=== PATIENT | male | born 1995 | race Two or more races ===

== ENCOUNTER 2016-10-01 12:59 | Emergency (ER) | payer MEDICAID ==
[~2016-10-01] VITALS: Ht 180.3 cm; Wt 72.6 kg
[2016-10-01 13:33] VITALS: BP 105/60
[2016-10-01 14:01] LABS: Basophils # (auto) 0 uL; Basophils % (auto) 0.4 % (0.0-2.0); DEFINITIVE VIEW TRANSMISSION; Eosinophils # (auto) 0 uL; Eosinophils % (auto) 0.1 % (0.0-7.0); Hematocrit 44.9 % (41.0-53.0); Hemoglobin 14.2 g/dL (13.5-17.5); Lymphocytes # (auto) 2.2 uL; Lymphocytes % (auto) 27.7 % (10.0-50.0); Mean Corpuscular Hemoglobin 24.5 pg (28.0-32.0); Mean Corpuscular Hgb Conc. 31.6 g/dL (32.0-36.0); Mean Corpuscular Volume 77.6 fL (80.0-100.0); Mean Platelet Volume 9.7 fL (7.4-10.4); Monocytes # (auto) 0.7 uL; Monocytes % (auto) 8.6 % (0.0-12.0); Neutrophils # (auto) 5.1 uL; Neutrophils % (auto) 63.2 % (37.0-80.0); Platelet Count (auto) 214 10^3/uL (140-450); SUSPECT VIEW TRANSMISSION
[2016-10-01 14:39] LABS: Albumin 4.9 g/dL (3.4-5.0); Alkaline Phosphatase 79 U/L (45-117); Anion Gap 17 (5-15); Aspartate Aminotransferase 18 U/L (15-37); BUN/Creatinine Ratio 8.5; Bilirubin, Total 0.7 mg/dL (0.2-1.0); Blood Urea Nitrogen 13 mg/dL (7-18); Carbon Dioxide 17 mmol/L (21-32); Chloride 104 mmol/L (98-107); GFR African American 74 mL/min; GFR Non-African American 61 mL/min; Glucose 131 mg/dL (74-106); Sodium 138 mmol/L (136-145); Total Protein 8.7 g/dL (6.4-8.2)
[2016-10-01 14:46] LABS: Potassium 2.8 mmol/L (3.5-5.1)
[2016-10-01] MEDS ORDERED: POTASSIUM CHL 20 Meq TABLET PO ONE (16:15)
== END 2016-10-01 16:10 | disposition left against medical advice (07) ==
LOC: EDBD 12:59 → ER 13:15
DX: F41.9 Anxiety disorder, unspecified (principal); Z53.21 Procedure and treatment not carried out due to patient leaving prior to being seen by health care provider
CPT/HCPCS: 36415; 71010; 80053; 84484; 85025; 93005

== ENCOUNTER 2016-11-26 11:42 | Emergency (ER) | payer MEDICAID ==
[~2016-11-26] VITALS: Ht 180.3 cm; Wt 72.6 kg
[2016-11-26 11:58] VITALS: BP 117/62
== END 2016-11-26 12:41 | disposition home or self-care (01) ==
LOC: ER 11:42
DX: S16.1XXA Strain of muscle, fascia and tendon at neck level, initial encounter (principal); V49.49XA Driver injured in collision with other motor vehicles in traffic accident, initial encounter; Y93.89 Activity, other specified; Y99.8 Other external cause status; Y92.89 Other specified places as the place of occurrence of the external cause